=== PATIENT | female | born 1990 | race Caucasian/White ===

== ENCOUNTER 2018-03-03 20:32 | Emergency (ER) | payer BC ==
--- NOTE | 2018-03-03 21:17 | EDM.PDOC ---
ED HPI GENERAL MEDICAL PROBLEM - General Chief Complaint: Respiratory Problem Stated Complaint: SOB Time Seen by Provider: 03/03/18 21:11 Source of Information: Reports: Patient History Limitations: Reports: No Limitations - History of Present Illness INITIAL COMMENTS - FREE TEXT/NARRATIVE: Patient has h/o Jcta-[id number] syndrome, presents with shortness of breath and intermittent right sided chest pain since 02/27/18. Denies chest pain at this time. 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 Patient is currently 18 weeks . Denies personal or family h/o DVT or PE. Denies leg pain. Onset Date: 02/27/18 Location: Reports: Chest Severity: Moderate Associated Symptoms: Reports: Cough (slight) Right Chest Pain Score (Numeric/FACES): 4 - Related Data Home Meds: Home Meds NK [No Known Home Meds] 03/03/18 [History] Past Medical History Respiratory History: Reports: Pneumothorax Immunologic History: Reports: Other (See Below) ( Iswa-Tda-Nhfd Syndrome) Social & Family History - Tobacco Use Smoking Status *Q: Never Smoker ED ROS GENERAL - Review of Systems Review Of Systems: ROS reveals no pertinent complaints other than HPI. ED EXAM, GENERAL - Physical Exam Exam: See Below Exam Limited By: No Limitations General Appearance: Alert, WD/WN, No Apparent Distress Ears: Normal External Exam Throat/Mouth: No Airway Compromise Head: Atraumatic, Normocephalic Respiratory/Chest: No Respiratory Distress, Decreased Breath Sounds (slightly diminished breath sounds on right) Cardiovascular: Regular Rate, Rhythm, No Murmur Neurological: Alert, No Motor/Sensory Deficits Psychiatric: Normal Affect, Normal Mood Skin Exam: Warm, Dry, Intact Course - Vital Signs Last Recorded V/S: Last Vital Signs Temp 36.8 C 03/03/18 21:00 Pulse 68 03/03/18 21:00 Resp 18 03/03/18 21:00 BP 130/79 03/03/18 21:00 Pulse Ox 99 03/03/18 21:00 - Orders/Labs/Meds Orders: Active Orders 24 hr Category Date Time Status CXR [Chest 1V Frontal] [CR] Stat Exams 03/03/18 21:08 Ordered - Radiology Interpretation Free Text/Narrative:: CXR: No acute abnormalities, no pneumothorax - Re-Assessments/Exams Free Text/Narrative Re-Assessment/Exam: 03/03/18 21:35 Patient refuses Albuterol Neb Departure - Departure Time of Disposition: 22:16 Disposition: Home, Self-Care 01 Condition: Good Clinical Impression: Dyspnea Qualifiers: Dyspnea type: unspecified Qualified Code(s): R06.00 - Dyspnea, unspecified - Discharge Information *PRESCRIPTION DRUG MONITORING PROGRAM REVIEWED*: No *COPY OF PRESCRIPTION DRUG MONITORING REPORT IN PATIENT KENDRA: Not Applicable Instructions: Shortness of Breath, Adult, [id number] Referrals: PCP,Not In Area [Primary Care Provider] - Forms: ED Department Discharge Additional Instructions: Follow up with your primary physician in 2 days. Return to the ER if symptoms worsen. - My Orders Last 24 Hours: My Active Orders 03/03/18 21:08 CXR [Chest 1V Frontal] [CR] Stat - Assessment/Plan Last 24 Hours: My Active Orders 03/03/18 21:08 CXR [Chest 1V Frontal] [CR] Stat
== END 2018-03-03 22:23 | disposition home or self-care (01) ==
LOC: FB.ED 20:32
DX: R06.00 Dyspnea, unspecified (principal)
CPT/HCPCS: 71045; 99284